=== PATIENT | male | born 1945 | race Caucasian/White ===

== ENCOUNTER 2021-10-04 10:48 | Outpatient (CLI) | payer OTHER | END 2021-10-04 10:49 | disposition home or self-care (01) | LOC: NUCLEAR 10:48 | PROVIDERS: ATTEND Family Medicine Geriatric Medicine | DX: I70.219 Atherosclerosis of native arteries of extremities with intermittent claudication, unspecified extremity (principal) ==

== ENCOUNTER 2021-10-07 07:30 | Outpatient (CLI) | payer OTHER | END 2021-10-07 07:31 | disposition home or self-care (01) | LOC: NUCLEAR 07:30 | PROVIDERS: ATTEND Family Medicine Geriatric Medicine | DX: I87.2 Venous insufficiency (chronic) (peripheral) (principal) ==